=== PATIENT | male | born 1970 | race Caucasian/White ===

== ENCOUNTER 2020-09-21 20:32 | Emergency (ER) | payer OTHER ==
[~2020-09-21] VITALS: Ht 188 cm; Wt 110.2 kg
[~2020-09-21 20:32] MED LIST: ASCO500C PO; CETI10TA74 PO; VITA50004 PO
[2020-09-21 20:56] VITALS: BP 111/75
--- NOTE | 2020-09-21 21:12 | PHYS DOC ---
Past History Past Medical History: No Pertinent History Past Surgical History: Tonsillectomy, Other Additional Past Surgical Histo: left ACL repair 2015 Alcohol Use: Occasionally Adult General Chief Complaint Chief Complaint: RAPID HEART RATE HPI HPI Patient is a 49-year-old male who presents with rapid heart rate. States it started yesterday. States he is never had this before. Denies any medical problems or current medications. Denies any recent travel, trauma, fevers, chest pain, shortness of breath, abdominal pain, nausea, vomiting, dysuria, diarrhea, hematuria or blood in the stool. Denies any alcohol or drug use. Denies any dyspnea on exertion, orthopnea, PND or edema. Denies any history of VTE. States every time this year he does suffer from sinus infections and over the last week or 2 has had some nasal congestion and rhinorrhea with some itchiness in his eyes. States he is in the , and is never treated by the clinic for this and is told that it is usually allergic rhinitis. Denies any known ill contacts. Review of Systems Review of Systems Review of systems otherwise unremarkable except noted in HPI Allergies Allergies Allergies Coded Allergies Type Severity Reaction Last Updated Verified No Known Drug Allergies 03/20/20 No Physical Exam Physical Exam Constitutional: Well developed, well nourished, no acute distress, non-toxic appearance. [] HENT: Normocephalic, atraumatic, bilateral external ears normal, oropharynx moist, no oral exudates, nose normal. [] Eyes: conjunctiva normal, no discharge. [] Neck: Normal range of motion, no tenderness, supple, no stridor. [] Cardiovascular: Sinus tachycardia Lungs & Thorax: Bilateral breath sounds clear to auscultation [] Abdomen: soft, no tenderness, no masses, no pulsatile masses. [] Skin: Warm, dry, no erythema, no rash. [] Back: no CVA tenderness. [] Extremities: No tenderness, no cyanosis, no clubbing, ROM intact, no edema. [] Neurologic: Alert and oriented X 3, normal motor function, normal sensory function, no focal deficits noted. [] Psychologic: Affect normal, judgement normal, mood normal. [] Current Patient Data Vital Signs Vital Signs Date Time Temp Pulse Resp B/P (MAP) Pulse Ox O2 Delivery O2 Flow Rate FiO2 09/21/20 20:56 98.5 130 18 111/75 (87) 100 Room Air EKG EKG Rate of 125, QRS of 86, QTc of 426, no STEMI [] Radiology/Procedures Radiology/Procedures [] Heart Score C/O Chest Pain: No Risk Factors: Risk Factors: DM, Current or recent (<one month) smoker, HTN, HLP, family history of CAD, obesity. Risk Scores: Risk Factors: DM, Current or recent (<one month) smoker, HTN, HLP, family history of CAD, obesity. Course & Med Decision Making Course & Med Decision Making Patient is a 49-year-old male who presents with rapid heart rate Vital signs notable for sinus tachycardia. Physical exam noted above. EKG x2 noted above with sinus tachycardia no STEMI, but does have low limb lead v oltage. Troponin normal x2 Laboratory analysis not concerning. POC ultrasound with small pericardial effusion. Given patient's history of probable sinus infection, tachycardia, and EKG with low voltage on top of POC ultrasound showing a small pericardial effusion, patient likely suffering from pericarditis. On reassessment patient still asymptomatic with heart rate down around 100 after fluid resuscitation and Toradol. Patient otherwise healthy with no medical problems, and on no medications. Patient has no fever, and no white count. Patient has no headache, chest pain, shortness of breath, abdominal pain, nausea or vomiting. Given first dose of Toradol and colchicine in the ED. Discussed all findings with patient and recommended a course of NSAIDs and colchicine. Offered admission for evaluation and treatment as well as formal echocardiogram on Wednesday. Patient stated he otherwise felt well and would try the NSAIDs and colchicine route at home, as well as follow-up with his primary care. Advised to call primary care physician first thing Wednesday morning to update on pericarditis diagnoses and set up a follow-up appointment next week for repeat EKG and reevaluation. Gave strict return precautions to the emergency department. Patient grateful, verbalized understanding and agreed with plan of discharge. [] Dragon Disclaimer Dragon Disclaimer This electronic medical record was generated, in whole or in part, using a voice recognition dictation system. Departure Departure: Impression: Primary Impression: Pericarditis Disposition: 01 DC HOME SELF CARE/HOMELESS Condition: IMPROVED Referrals: PCP,NO (PCP) JESS GILBERT MD Patient Instructions: Pericardial Effusion, Pericarditis Additional Instructions: Please read all of the attached information carefully on your diagnosis. Please begin an ibuprofen regimen daily, taking 800 mg 3 times a day. You can also take Tylenol 1000 mg 3 times daily in between your ibuprofen dosing. Please take your colchicine as prescribed. It is very important that you follow-up with your primary care physician. Please call first thing Wednesday morning to update on your diagnosis of pericarditis and asked for a follow-up visit as soon as possible next week for reevaluation. As discussed, please come back to the emergency department immediately with any of the new or concerning symptoms that you and I discussed here in the emergency department. You are given a work note to return on Wednesday to allow rest and contact with your PCP. Scripts Ibuprofen (IBUPROFEN) 400 Mg Tablet 2 TAB PO TID PRN for pericarditis for 10 Days, #60 TAB Prov: GLENDY ISABEL MD 09/22/20 Colchicine (Colchicine) 0.6 Mg Tablet 1 TAB PO DAILY for pericarditis for 30 Days, #30 TAB 0 Refills Prov: GLENDY ISABEL MD 09/22/20 GLENDY ISABEL MD Sep 21, 2020 21:12
[2020-09-21 21:28] LABS: BASO % 0 % (0-3); EOS % 0 % (0-3); HEMATOCRIT 47.3 % (39.0-53.0); HEMOGLOBIN 16.4 g/dL (13.0-17.5); LYMPH # 0.7 x10^3/uL (1.0-4.8); LYMPH % 6 % (24-48); MEAN CORPUSCULAR HEMOGLOBIN 31 pg (25-35); MEAN CORPUSCULAR HGB CONC 35 g/dL (31-37); MEAN CORPUSCULAR VOLUME 91 fL (79-100); MONO # 0.4 x10^3/uL (0.0-1.1); MONO % 4 % (0-9); NEUT % 90 % (31-73); PLATELET COUNT 250 x10^3/uL (140-400); RED BLOOD COUNT 5.21 x10^6/uL (4.30-5.70); RED CELL DISTRIBUTION WIDTH 13.3 % (11.5-14.5); WHITE BLOOD COUNT 11.1 x10^3/uL (4.0-11.0)
[2020-09-21] MEDS ORDERED: IV RINGERS SOLUTION,LACTATED 1,000 ML IV ONE (21:30)
[2020-09-21 21:37] LABS: CALCIUM 9.5 mg/dL (8.5-10.1); CREATININE 1.3 mg/dL (0.7-1.3); GFR 58.2; POTASSIUM 4.1 mmol/L (3.5-5.1)
[2020-09-21 21:43] LABS: % LYMPHS 8 % (24-48); % MONOS 4 % (0-10); % SEGS 88 % (35-66); ALBUMIN 4.3 g/dL (3.4-5.0); ALBUMIN/GLOBULIN RATIO 1.4 (1.0-1.7); MAGNESIUM 1.6 mg/dL (1.8-2.4); PLT ESTIMATE ADEQUATE (ADEQUATE); TOTAL PROTEIN 7.4 g/dL (6.4-8.2)
--- NOTE | 2020-09-21 21:51 | RAD ---
Exam: Chest one view INDICATION: Rapid heart rate TECHNIQUE: Frontal view of the chest Comparisons: None FINDINGS: The cardiomediastinal silhouette and pulmonary vessels are within normal limits. The lung and pleural spaces are clear. IMPRESSION: No acute cardiopulmonary process. Electronically signed by: Nick Modi MD (09/21/2020 9:49 PM) HARISH
[2020-09-21] MEDS ORDERED: MAGNESIUM SULFATE 2GM 50 ML IV ONE (23:30)
[2020-09-21 23:47] LABS: BILIRUBIN,URINE NEG (NEG); CLARITY,URINE CLEAR; COLOR,URINE YELLOW; GLUCOSE,URINE NEG (NEG); UROBILINOGEN,URINE 0.2 mg/dL (0.2 mg/dL)
[2020-09-21 23:48] LABS: BACTERIA,URINE 0 /HPF (0-FEW); NITRITE,URINE NEG (NEG); RBC,URINE 0 /HPF (0-2); SPERM,URINE PRESENT /HPF; SQUAMOUS EPITHELIAL CELL,UR FEW /LPF; WBC,URINE OCC /HPF (0-4)
[2020-09-21 23:52] LABS: AMPHETAMINE/METHAMPHETAMINE NEG (NEG); BARBITURATES NEG (NEG); BENZODIAZEPINES NEG (NEG); CANNABINOIDS NEG (NEG); COCAINE NEG (NEG); METHADONE NEG (NEG); OPIATES NEG (NEG); PHENCYCLIDINE NEG (NEG)
[2020-09-22] MEDS ORDERED: KETOROLAC 15 MG/ML VIAL. IVP ONE (02:30)
[2020-09-22] MEDS ORDERED: IBUP400T18 PO (02:46)
[2020-09-22] MEDS ORDERED: COLC0.6T45 PO (02:46)
[2020-09-22] MEDS ORDERED: COLCHICINE 0.6 MG TABLET. PO ONE (03:00)
--- NOTE | 2020-09-22 03:20 | EKG ---
[facility] [address] [place] [address] Test Date: 2020-09-21 Test Time: 20:57:29 Pat Name: LEOBARDO SMITH Department: Room: Gender: M Primary Special Educator: JULES : 1970 Requested By: GLENDY ISABEL Order Number: [id number] Reading MD: Measurements Intervals [place] Rate: 125 P: 54 TN: 166 QRS: 67 QRSD: 86 T: 34 QT: 294 QTc: 426 Interpretive Statements SINUS TACHYCARDIA LOW LIMB LEAD VOLTAGE NO SPECIFIC ECG ABNORMALITIES RI6.02 No previous ECG available for comparison
[2020-09-23] MEDS ORDERED: AMOX1TAB61 PO (14:54)
== END 2020-09-22 02:59 | disposition home or self-care (01) ==
LOC: ER 20:32
DX: I31.9 Disease of pericardium, unspecified (principal)
CPT/HCPCS: 36415; 71045; 80053; 80307; 81001; 83735; 84484; 85007; 85025; 93005; 96361; 96365; 96366; 96375; 99285; J1885; J3475; J7120

== ENCOUNTER 2020-09-22 10:41 | Inpatient (IN) | payer OTHER ==
[~2020-09-22] VITALS: Ht 188 cm; Wt 110.7 kg
[~2020-09-22 10:41] MED LIST changes: +COLC0.6T45 PO; +IBUP400T18 PO
[2020-09-22 11:26] LABS: BASO % 1 % (0-3); EOS % 0 % (0-3); HEMATOCRIT 45.3 % (39.0-53.0); HEMOGLOBIN 15.6 g/dL (13.0-17.5); LYMPH # 0.6 x10^3/uL (1.0-4.8); LYMPH % 9 % (24-48); MEAN CORPUSCULAR HEMOGLOBIN 31 pg (25-35); MEAN CORPUSCULAR HGB CONC 34 g/dL (31-37); MEAN CORPUSCULAR VOLUME 90 fL (79-100); MONO # 0.3 x10^3/uL (0.0-1.1); MONO % 4 % (0-9); NEUT # 6.2 x10^3uL (1.8-7.7); NEUT % 87 % (31-73); PLATELET COUNT 229 x10^3/uL (140-400); RED BLOOD COUNT 5.03 x10^6/uL (4.30-5.70); RED CELL DISTRIBUTION WIDTH 13.1 % (11.5-14.5); WHITE BLOOD COUNT 7.2 x10^3/uL (4.0-11.0)
[2020-09-22 11:38] LABS: CALCIUM 8.7 mg/dL (8.5-10.1); CREATININE 1.3 mg/dL (0.7-1.3); GFR 58.2; POTASSIUM 3.7 mmol/L (3.5-5.1)
--- NOTE | 2020-09-22 11:42 | RAD ---
Exam performed: One view chest. Indication: Reason: chest pain, tachycardia / Spl. Instructions: / History: Date of Service: 09/22/2020 11:15 AM Comparison: 09/21/2020. Single AP upright portable view chest findings: Cardiomediastinal silhouette is within limits of normal. No acute infiltrates, effusion or pneumotho rax is detected. The bony structures are normal. Impression: No acute cardiopulmonary process is detected. Electronically signed by: Scarlett Ford MD (09/22/2020 11:39 AM) [facility]
[2020-09-22 11:50] LABS: ALBUMIN 3.8 g/dL (3.4-5.0); ALBUMIN/GLOBULIN RATIO 1.2 (1.0-1.7); TOTAL BILIRUBIN 1.1 mg/dL (0.2-1.0); TOTAL PROTEIN 7.1 g/dL (6.4-8.2)
[2020-09-22] MEDS ORDERED: IBUPROFEN 800 MG TABLET. PO ONE (12:00)
[2020-09-22] MEDS ORDERED: AMPICILLIN/SULBACTAM 3 GM in IV NORMAL SALINE 100ML 100 ML IV ONE (12:30)
--- NOTE | 2020-09-22 12:33 | EKG ---
[address] [address] Test Date: 2020-09-22 Test Time: 11:13:58 Pat Name: LEOBARDO SMITH Department: Room: Gender: M Punch Press Feeder: RANJAN : 1970 Requested By: ADDY ZAMBRANO Order Number: [id number] Reading MD: Manny Tadeo MD Measurements Intervals [place] Rate: 103 P: 78 LA: 178 QRS: 73 QRSD: 94 T: 48 QT: 330 QTc: 434 Interpretive Statements SINUS TACHYCARDIA Electronically Signed On 09-23-2020 12:44:43 CDT by Manny Tadeo MD
[2020-09-22] MEDS ORDERED: IV NORMAL SALINE 1,000ML 1,000 ML IV ONE (12:45)
--- NOTE | 2020-09-22 13:32 | PHYS DOC ---
Past History Past Medical History: No Pertinent History Past Surgical History: Tonsillectomy, Other Additional Past Surgical Histo: left ACL repair 2015 Alcohol Use: Occasionally Adult General Chief Complaint Chief Complaint: RAPID HEART RATE HPI HPI Patient is a 49-year-old male representing for chest pain. Was seen here in the preceding 12 hours by overnight physician, had comprehensive work-up performed that was concerning for pericarditis given recent URI-like symptoms and suspect dental infection. Patient was subsequently discharged home after improving from initial ER care with appropriate NSAIDs and colchicine. Patient reports taking these but still reports being symptomatic with occasional palpitations, generalized weakness and intermittent chest pain prompting him to come back for repeat evaluation. Since last seen, patient denies any fever, vision changes, ripping or tearing chest pain, hemoptysis, shortness of breath, abdominal pain, neurologic symptoms Review of Systems Review of Systems Fourteen body systems of review of systems have been reviewed. See HPI for pertinent positives and negative responses, other barber all other systems are negative, non-pertinent or non-contributory Current Medications Current Medications Current Medications Medications (Trade) Dose Ordered Sig/Elroy Start Time Stop Time Status Last Admin Dose Admin Ampicillin Sodium/ Sulbactam Sodium 3 gm/Sodium Chloride 100 ml @ 200 mls/hr 1X ONCE 09/22/20 12:30 09/22/20 12:59 DC 09/22/20 12:50 200 MLS/HR Ibuprofen (Motrin) 800 mg 1X ONCE 09/22/20 12:00 09/22/20 12:08 DC Sodium Chloride 1,000 ml @ 1,000 mls/hr 1X ONCE 09/22/20 12:45 09/22/20 13:44 09/22/20 12:50 1,000 MLS/HR Allergies Allergies Allergies Coded Allergies Type Severity Reaction Last Updated Verified No Known Drug Allergies 03/20/20 No Physical Exam Physical Exam Constitutional: Well developed, well nourished, no acute distress, appears uncomfortable HENT: Normocephalic, atraumatic, bilateral external ears normal, oropharynx dry with concern for infected dental carry tooth #12, no oral exudates, nose normal. Eyes: PERRLA, EOMI, conjunctiva normal, no discharge. Neck: Normal range of motion, no tenderness, supple, no stridor. Cardiovascular: Heart rate tachycardic, sinus rhythm, no obvious murmurs rubs or gallops Lungs & Thorax: Bilateral breath sounds clear to auscultation, no increased work of breathing or respiratory distress noted Abdomen: Bowel sounds normal, soft, no tenderness, no masses, no pulsatile masses. Nonsurgical abdomen, no peritoneal signs Skin: Warm, dry, no erythema, no rash. Back: No tenderness, no CVA tenderness. Extremities: No tenderness, no cyanosis, no clubbing, ROM intact, no edema. Neurologic: Alert and oriented X 3, grossly normal motor & sensory function, no focal deficits noted. Psychologic: Affect normal, judgement normal, depressed mood Current Patient Data Vital Signs Vital Signs Date Time Temp Pulse Resp B/P (MAP) Pulse Ox O2 Delivery O2 Flow Rate FiO2 09/22/20 12:30 90 16 113/69 (84) 99 Room Air 09/22/20 10:49 97.9 Lab Results Laboratory Tests Test 09/22/20 10:52 09/22/20 11:50 White Blood Count 7.2 x10^3/uL (4.0-11.0) Red Blood Count 5.03 x10^6/uL (4.30-5.70) Hemoglobin 15.6 g/dL (13.0-17.5) Hematocrit 45.3 % (39.0-53.0) Mean Corpuscular Volume 90 fL (79-100) Mean Corpuscular Hemoglobin 31 pg (25-35) Mean Corpuscular Hemoglobin Concent 34 g/dL (31-37) Red Cell Distribution Width 13.1 % (11.5-14.5) Platelet Count 229 x10^3/uL (140-400) Neutrophils (%) (Auto) 87 % (31-73) H Lymphocytes (%) (Auto) 9 % (24-48) L Monocytes (%) (Auto) 4 % (0-9) Eosinophils (%) (Auto) 0 % (0-3) Basophils (%) (Auto) 1 % (0-3) Neutrophils # (Auto) 6.2 x10^3uL (1.8-7.7) Lymphocytes # (Auto) 0.6 x10^3/uL (1.0-4.8) L Monocytes # (Auto) 0.3 x10^3/uL (0.0-1.1) Eosinophils # (Auto) 0.0 x10^3/uL (0.0-0.7) Basophils # (Auto) 0.0 x10^3/uL (0.0-0.2) Sodium Level 134 mmol/L (136-145) L Potassium Level 3.7 mmol/L (3.5-5.1) Chloride Level 100 mmol/L (98-107) Carbon Dioxide Level 23 mmol/L (21-32) Anion Gap 11 (6-14) Blood Urea Nitrogen 12 mg/dL (8-26) Creatinine 1.3 mg/dL (0.7-1.3) Estimated GFR (Cockcroft-Gault) 58.2 BUN/Creatinine Ratio 9 (6-20) Glucose Level 122 mg/dL (70-99) H Calcium Level 8.7 mg/dL (8.5-10.1) Total Bilirubin 1.1 mg/dL (0.2-1.0) H Aspartate Amino Transferase (AST) 28 U/L (15-37) Alanine Aminotransferase (ALT) 35 U/L (16-63) Alkaline Phosphatase 53 U/L (46-116) Troponin I Quantitative < 0.017 ng/mL (0-0.055) ZE-Phb-W-Type Natriuretic Peptide 149 pg/mL (0-124) H Total Protein 7.1 g/dL (6.4-8.2) Albumin 3.8 g/dL (3.4-5.0) Albumin/Globulin Ratio 1.2 (1.0-1.7) Lactic Acid Level 0.8 mmol/L (0.4-2.0) EKG EKG EKG ordered and interpreted by myself at 1120 hrs. as sinus rhythm at 103 bpm, unremarkable intervals, no axis deviation, no significant ST abnormalities noted, no STEMI This EKG was compared to prior EKG obtained yesterday evening at 2057 hrs., there is no gross change Radiology/Procedures Radiology/Procedures Exam performed: One view chest. Indication: Reason: chest pain, tachycardia / Spl. Instructions: / History: Date of Service: 09/22/2020 11:15 AM Comparison: 09/21/2020. Single AP upright portable view chest findings: Cardiomediastinal silhouette is within limits of normal. No acute infiltrates, effusion or pneumothorax is detected. The bony structures are normal. Impression: No acute cardiopulmonary process is detected. Electronically signed by: Scarlett Ford MD (09/22/2020 11:39 AM) [facility] Heart Score C/O Chest Pain: Yes HEART Score for Chest Pain: HEART Score for Chest Pain Response (Comments) Value History Moderately Suspicious 1 ECG Nonspecific Repolarizatio 1 Age >45 - < 65 1 Risk Factors No Risk Factors 0 Troponin < Normal Limit 0 Total 3 Risk Factors: Risk Factors: DM, Current or recent (<one month) smoker, HTN, HLP, family history of CAD, obesity. Risk Scores: Risk Factors: DM, Current or recent (<one month) smoker, HTN, HLP, family history of CAD, obesity. Course & Med Decision Making Course & Med Decision Making Patient initially tachycardic but hemodynamically stable. HPI and physical examination concerning for recent diagnosis of pericarditis with pericardial effusion noted on POC ultrasound Comprehensive ER work-up performed and grossly unremarkable for any emergent and/or surgical issues Responded to IV fluid resuscitation while in ER. I reviewed ER work-up again with patient at length with good understanding. Patient still symptomatic, does not feel safe for discharge back home. Joint decision made to start treatment on suspect URI/dental infection and admit for continued care and high risk patient I contacted on-call hospitalist and reviewed case, he agreed need for admission and accepted patient under his care for continued inpatient medical management and potential cardiology consultation I updated patient on proposed plan of care for admission and continued management with IV fluids, NSAIDs, colchicine and antibiotics for oral pharyngeal infection, he was amenable All questions and concerns addressed prior to ER transport to [facility] for admission Critical Care Time This patient required critical care. Due to the fact that the patient required a significant amount of one on one physician - patient contact time, ordering and review of studies, arranging urgent treatment with development of a management plan, evaluation of patients response to treatment with frequent reassessments, and discussions with other providers this patient required 50 minutes of critical care time. Critical care time was indicated due to the inherent instability and/or potential for instability in this patient. The critical care time that is allocated to this patient is above and beyond any time spent on any other billable procedures performed on this patient. Dragon Disclaimer Dragon Disclaimer This electronic medical record was generated, in whole or in part, using a voice recognition dictation system. Departure Departure: Impression: Primary Impression: Pericarditis Additional Impression: Dental infection Disposition: 09 ADMITTED INPT THIS HOSP Admitting Physician: Xander Peterson Condition: STABLE Referrals: PCP,NO (PCP) Problem Qualifiers ADDY ZAMBRANO DO Sep 22, 2020 13:32
[2020-09-22] MEDS ORDERED: ACETAMINOPHEN 325 MG TABLET PO PRN (13:45)
--- NOTE | 2020-09-22 14:00 | NUR ---
ADMISSION NOTE Pt arrived to unit at 1400. Admission complete. Pt started on maintenance fluids, abx and anti inflammatory per Dr. Peterson. Pt resting comfortably and no complains of pain. Tele placed on pt. Will continue to monitor. KINDRA RN
[2020-09-22 14:38] VITALS: BP 118/81
[2020-09-22 15:01] VITALS: BP 118/81
[2020-09-22] MEDS ORDERED: IV NORMAL SALINE 1,000ML 1,000 ML IV SCH (16:15)
[2020-09-22] MEDS: AMPICILLIN/SULBACTAM 3 GM in IV NORMAL SALINE 100ML 100 ML IV SCH ×2 (17:51→23:33)
[2020-09-22] MEDS: IBUPROFEN 800 MG TABLET. PO PRN (17:57)
--- NOTE | 2020-09-22 19:04 | HP ---
ADMIT DATE: 09/22/2020 HISTORY OF PRESENT ILLNESS: The patient is a 49-year-old male patient who was seen initially at the Emergency Room yesterday with a complaint of rapid heart rate. He stated it started the day before and he has never had this before. He denied any medical problems or current medication. Denied any recent travel or trauma, fever, chest pain, shortness of breath, abdominal pain, nausea, vomiting, dysuria, diarrhea, or hematuria. Denied any alcohol or drug use. Denied any dyspnea on exertion, orthopnea, paroxysmal nocturnal dyspnea. He denied any history of venous thromboembolism. States every time this year, he does suffer from sinus infection, and over the last week or 2, had had some nasal congestion and rhinorrhea with some itchiness in his eyes. States that he is ambulatory and is never treated by the clinic for this and he is told that it is usually allergic rhinitis. He apparently was extensively investigated. He had had an EKG, which showed he was in sinus tachycardia with a heart rate of 125 beats per minute. He has also extensive investigation including lab work as well as imaging studies. His white cell count was slightly elevated at 11.1. His chemistry was mostly unremarkable. Urinalysis was also unremarkable. Toxic screen was essentially negative. He has had a chest x-ray, which showed that the cardiomediastinal silhouette and pulmonary vessels are within normal limits. The lungs and pleural spaces are clear, and apparently, he was discharged home, as ultrasound showed small pericardial effusion, and the patient was diagnosed with pericarditis, and given that he has sinus infection and tachycardia, EKG with low voltage on top of ultrasound showing small pericardial effusion. The patient was discharged home with clear instruction to come back if the patient continued to have marked tachycardia. He was advised to call his primary care physician on Wednesday morning. However, the patient was unable to sleep and continued to have persistent tachycardia, and therefore, the patient was admitted. He was started on Unasyn and was admitted to continue with the ibuprofen, IV antibiotic and to consult the Cardiology team. PAST MEDICAL HISTORY: Unremarkable. PAST SURGICAL HISTORY: Significant for ACL repair in left knee 6 years ago. He also had tonsillectomy and adenoidectomy. ALLERGIES: He has no known drug allergies. MEDICATIONS: He is on Zyrtec 10 mg once a day for allergy. FAMILY HISTORY: He has one brother older and healthy. Father still alive at age of 80 and mother is still alive at age 76 and both have no medical problems. SOCIAL HISTORY: He is , has 2 sons. He never smoked. Drinks alcohol occasionally. Does not use any drugs. He is an senior data quality analyst ____, as he is a retired . PHYSICAL EXAMINATION: GENERAL: On examining him today, he looked well and was clearly in no apparent respiratory distress. No pallor, jaundice, cyanosis or thyromegaly. No jugular venous distention or limb edema. VITAL SIGNS: His heart rate was 114, blood pressure was 120/82, temperature was 97.9, respiratory rate was 16, and oxygen saturation was 99%. HEAD, EYES, EARS, NOSE AND THROAT: Showed normocephalic, atraumatic. NECK: Supple. HEART: Showed normal first and second heart sounds. No gallop or murmur. CHEST: Shows central trachea, equal bilateral chest expansion, air entry, vesicular sounds. I could not appreciate any crepitation or rhonchi. ABDOMEN: Distended, soft, nontender. NEUROLOGIC: Grossly intact. ASSESSMENT AND PLAN: In summary, this is a 49-year-old male patient who yet again admitted with another episode of tachycardia as well as dental infection. He was given IV fluid and IV antibiotic. PLAN: My plan is to continue with IV fluid, nonsteroidal inflammatory as well as antibiotics and consult the generating station mechanic, and I will also arrange for him to have a CT scan of the maxillofacial area, and once the generating station mechanic evaluates him ____, he can be discharged home to continue treatment with oral Augmentin. MÓNICA YOUNG MD DR: HERIBERTO/karen JOB#: [id number] / [id number]
[2020-09-22 19:45] VITALS: BP 136/83
--- NOTE | 2020-09-23 02:13 | RAD ---
CT maxillofacial without contrast History: Persistent pain on left maxillary sinus and teeth Axial helical images of the face were obtained without contrast. Axial, sagittal and coronal reconstr uction was performed. The nasal septum is moderately deviated to the right. The ostiomeatal complexes are narrow but patent . There is moderate mucoperiosteal thickening inferiorly in the left maxillary sinus. The visualized osseous structures appear intact. The orbits appear normal. Impression: Moderate mucoperiosteal thickening inferiorly in the left maxillary sinus. End impression PQRS Compliance Statement: One or more of the following individualized dose reduction techniques were utilized for this examinat ion: 1. Automated exposure control 2. Adjustment of the mA and/or kV according to patient size 3. Use of iterative reconstruction technique Electronically signed by: Johnnie Schofield III, MD (09/23/2020 2:11 AM) [facility]
[2020-09-23] MEDS: IBUPROFEN 800 MG TABLET. PO PRN (03:23)
[2020-09-23] MEDS: AMPICILLIN/SULBACTAM 3 GM in IV NORMAL SALINE 100ML 100 ML IV SCH ×2 (05:40→12:54)
[2020-09-23 06:21] VITALS: BP 122/81
[2020-09-23 06:34] LABS: HEMATOCRIT 42.7 % (39.0-53.0); HEMOGLOBIN 14.7 g/dL (13.0-17.5); RED BLOOD COUNT 4.67 x10^6/uL (4.30-5.70); RED CELL DISTRIBUTION WIDTH 13.3 % (11.5-14.5); WHITE BLOOD COUNT 3.9 x10^3/uL (4.0-11.0)
[2020-09-23 06:51] LABS: ALBUMIN 3.1 g/dL (3.4-5.0); CALCIUM 7.9 mg/dL (8.5-10.1); CREATININE 1.2 mg/dL (0.7-1.3); GFR 63.8; POTASSIUM 3.7 mmol/L (3.5-5.1); TOTAL BILIRUBIN 0.7 mg/dL (0.2-1.0); TOTAL PROTEIN 6.1 g/dL (6.4-8.2)
[2020-09-23 12:00] VITALS: BP 138/89
[2020-09-23] MEDS ORDERED: AMOX1TAB61 PO (14:54)
--- NOTE | 2020-09-23 17:25 | PDOC ---
PROVIDER NOTE PROVIDER NOTE PROVIDER NOTE Cardiology consultation note: Reason for consultation: Tachycardia History of present illness 49-year-old man who presented to the hospital in the setting of tooth pain and sinusitis type symptoms. He reports that he has had allergies for several years in the past and most recently at 5:00 the evening prior to admission had an episode where he had pain consistent with maxillary sinusitis and this also affected his upper palate and teeth. When he sought medical attention in the emergency department he did not have any significant pathology and ultimately also had a limited [id number] ultrasound performed on his heart which revealed a small pericardial effusion. The working diagnosis was that of pericarditis although he did not have any specific symptoms to suggest pericarditis. The [id number] ultrasound images are not available for review and therefore it is difficult to determine if he truly had a pericardial eff usion. Nonetheless, he was discharged with instructions to come back if there was any significant worsening. Due to worsening tachycardia type symptoms he presented back to the ER. He was admitted overnight and monitored. He did not have any significant pathology on telemetry. This morning he denies any specific chest pain, dyspnea, orthopnea or PND. He does not have any lilia carditic or pleuritic type chest pain. At baseline he is able to function quite well and does activity around the house without any significant limitations. He denies any prior cardiovascular history. A CT scan of the sinuses did reveal sinusitis of his left side consistent with the location of his symptoms. An EKG has been unremarkable. Past medical history: Seasonal allergies otherwise no significant cardiovascular pathology noted Surgical history is unremarkable Allergies no known drug allergies Review of systems is negative for 10 or 14 systems reviewed unless otherwise mentioned above in HPI The patient appeared well nourished and normally developed. Head exam is unremarkable. No scleral icterus or corneal arcus noted. Neck is without jugular venous distension, thyromegaly, or carotid bruits. Carotid upstrokes are brisk bilaterally. Lungs are clear to auscultation and percussion. Cardiac exam reveals the PMI to be normally sized and situated. Rhythm is regular. First and second heart sounds normal. No murmurs, rubs or gallops. Abdominal exam reveals normal bowel sounds, no masses, no organomegaly and no aortic enlargement. Extremities are nonedematous and both femoral and pedal pulses are normal. Msk: No traumua Neuro: No focal deficits Diagnostic studies/labs EKG, cardiac enzymes and chest x-ray are unremarkable Again [id number]-[id number] ultrasound performed in the ER is unavailable for review. CT of the head consistent with sinusitis. Impression: 1. Sinus tachycardia in the setting of sinusitis and pain without any obvious evidence of pericarditis. Recommendations: 1. At this present time I feel that the patient is a low risk individual with respect to cardiovascular pathology. He has no symptoms consistent with angina, he actually does not have any symptoms is consistent with pericarditis either. We will plan for an outpatient full echocardiogram study. For now continue treatment of his sinusitis. Supportive care. We will consider outpatient event monitoring should he have any recurrent symptoms after the treatment of his sinusitis. Thank you for this consultation. Discussed with the patient who is agreeable to the current plan. Discussed with Dr. Peterson Justification of Admission: Justification of Admission: Justification of Admission Dx: N/A MARIELLE SHERIFF MD Sep 23, 2020 17:25
--- NOTE | 2020-09-23 19:00 | DS ---
DATE OF DISCHARGE: 09/23/2020 HOSPITAL COURSE: The patient is a 49-year-old male patient who was admitted with a complaint of rapid heart rate started. He denied any chest pain, shortness of breath, cough, phlegm or hemoptysis. Denied any alcohol or drug use. Denied any orthopnea or paroxysmal nocturnal dyspnea. Denied any history of venous thromboembolism. He states that this time of the year, he does suffer from sinus infection and over the last week or two, he has had some nasal congestion and rhinorrhea with some itchiness in his eyes. He says he is ambulatory and never treated by the clinic for this and he apparently was extensively investigated, has had an EKG, which showed that he was in sinus tachycardia with a heart rate of 125 beats per minute. He has also extensive investigation including lab work as well as imaging studies. His white cell count was slightly elevated at 11.1. Chemistry was mostly unremarkable. Urinalysis was also unremarkable. Toxic screen was essentially negative. He has had a chest x-ray, which showed that he had cardiomediastinal silhouette and pulmonary vessels are within normal limits. The lungs and pleural spaces are clear. Apparently, he was discharged home as ultrasound showed small pericardial effusion and the patient was diagnosed with endocarditis given that he has sinus infection and tachycardia. EKG with low voltage on double ultrasound showing small pericardial effusion. The patient was discharged home with a clear instruction to come back if the patient continued to have marked tachycardia. He was advised to call his primary care physician; however, the patient was unable to sleep. Continued to have persistent tachycardia and therefore, the patient was admitted. He was started on Unasyn and was continued on ibuprofen and we did consult the Cardiology team; however, the patient has denied any chest pain. His EKG did not show any ST segment elevation consistent with pericarditis and basically the patient remained hemodynamically stable, afebrile. His white cell count was normal and his heart rate remained stable and he was seen by the dump motor operator and initially, the plan was for him to have an echocardiogram; however, he has to have authorization by [facility] and therefore, the patient was discharged home to follow with his primary care physician. His CT scan of the paranasal sinuses showed that he has left sided maxillary sinusitis and a decision was made to discharge him home to continue with Augmentin at 875 mg twice a day for 7 more days and to make an appointment to be seen by an ENT surgeon for deviated nasal septum. When I saw him this afternoon, he looked well and was clearly in no apparent respiratory distress. No pallor, jaundice, cyanosis or thyromegaly. No jugular venous distension. No lower limb edema. PHYSICAL EXAMINATION: VITAL SIGNS: His heart rate was 87, blood pressure was 138/89, temperature was 97.8, respiratory rate was 16 and his oxygen saturation was 99% on room air. HEAD, EYES, EARS, NOSE AND THROAT: Showed normocephalic, atraumatic. NECK: Supple. HEART: Showed normal first and second heart sounds with no gallop, rub or murmur. CHEST: Clear to auscultation. No crepitation or rhonchi. ABDOMEN: Distended, soft, nontender. NEUROLOGIC: He was awake, alert, responding appropriately. All cranial nerves intact. EXTREMITIES: He moves extremities without difficulty, ambulates without assistance or assistive devices. LABORATORY DATA: This morning showed white cell count of 3900, hemoglobin 14, hematocrit 42, MCV 91, and platelet count of 172,000. His D-dimer was slightly elevated at 3.56. His chemistry showed a serum sodium 141, potassium 3.7, chloride 108, bicarbonate 23, anion gap of 10, BUN 101.2, estimated GFR was 63 mL per minute. His glucose was 105, calcium was 7.9. Total bilirubin, ALT and alkaline phosphatase is normal. AST is slightly elevated. His C-reactive protein was slightly elevated at 89, total protein was 6.1, albumin 3.1. His TSH was normal at 1.551 DISCHARGE MEDICATIONS: The patient was discharged home to continue on Augmentin 875 mg twice a day for 7 days with food. FINAL DISCHARGE DIAGNOSES: Sinus tachycardia, likely active left side maxillary sinusitis. There is no clinical or electrographic evidence of pericarditis as the patient has been chest pain free and EKG showed no evidence of ST segment elevation characteristic of pericarditis. The patient was found also to have deviated nasal septum. The patient was advised to follow with his primary care physician and also with an ENT surgeon for deviated nasal septum. MÓNICA YOUNG MD DR: HERIBERTO/karen JOB#: [id number] / [id number]
[2020-09-23] MEDS ORDERED: LACTOBACILLUS RHAMNOSUS GG 1 CAPSULE. PO SCH (21:00)
== END 2020-09-23 15:02 | disposition home or self-care (01) | DRG 158 ==
LOC: ER 10:41 → 1 SOUTH 13:34
PROVIDERS: ADMIT Internal Medicine; ATTEND Internal Medicine
DX: K04.6 Periapical abscess with sinus (principal); I38 Endocarditis, valve unspecified; J30.9 Allergic rhinitis, unspecified; J34.2 Deviated nasal septum; J32.0 Chronic maxillary sinusitis; J30.2 Other seasonal allergic rhinitis; Z79.899 Other long term (current) drug therapy; Z90.49 Acquired absence of other specified parts of digestive tract
CPT/HCPCS: 36415; 70486; 71045; 80053; 83605; 83880; 84443; 84484; 85025; 85027; 85379; 86140; 87040; 93005; J0295; 99285-25; J7030

== ENCOUNTER 2021-05-20 20:22 | Inpatient (IN) | payer OTHER ==
[~2021-05-20] VITALS: Ht 188 cm; Wt 106.6 kg
[~2021-05-20 20:22] MED LIST changes: +AMOX1TAB61 PO
--- NOTE | 2021-05-20 20:26 | PHYS DOC ---
Past History Past Medical History: No Pertinent History (ROSA MCNEAL MD) Past Surgical History: Tonsillectomy, Other Additional Past Surgical Histo: left ACL repair 2015 (ROSA MCNEAL MD) Alcohol Use: Occasionally (ROSA MCNEAL MD) General Adult HPI: HPI: Patient is a 50 year old male who presents with above hx and compliants (ROSA MCNEAL MD) Review of Systems: Review of Systems: Constitutional: Denies fever or chills Eyes: Denies change in visual acuity HENT: Denies nasal congestion or sore throat Respiratory: Denies cough or shortness of breath Cardiovascular: Denies chest pain or edema GI: Denies abdominal pain, nausea, vomiting, bloody stools or diarrhea : Denies dysuria Musculoskeletal: Denies back pain or joint pain Integument: Denies rash Neurologic: Denies headache, focal weakness or sensory changes Endocrine: Denies polyuria or polydipsia Lymphatic: Denies swollen glands Psychiatric: Denies depression or anxiety (ROSA MCNEAL MD) Allergies: Allergies: Allergies Coded Allergies Type Severity Reaction Last Updated Verified No Known Drug Allergies 03/20/20 No (ROSA MCNEAL MD) Physical Exam: PE: Constitutional: Well developed, well nourished, no acute distress, non-toxic appearance. [] HENT: Normocephalic, atraumatic, bilateral external ears normal, oropharynx moist, no oral exudates, nose normal. [] Eyes: PERRLA, EOMI, conjunctiva normal, no discharge. [] Neck: Normal range of motion, no tenderness, supple, no stridor. [] Cardiovascular:Heart rate regular rhythm, no murmur [] Lungs & Thorax: Bilateral breath sounds clear to auscultation [] Abdomen: Bowel sounds normal, soft, no tenderness, no masses, no pulsatile masses. [] Skin: Warm, dry, no erythema, no rash. [] Back: No tenderness, no CVA tenderness. [] Extremities: No tenderness, no cyanosis, no clubbing, ROM intact, no edema. [] Neurologic: Alert and oriented X 3, normal motor function, normal sensory function, no focal deficits noted. [] Psychologic: Affect normal, judgement normal, mood normal. [] (ROSA MCNEAL MD) EKG: EKG: [] (ROSA MCNEAL MD) Radiology/Procedures: Radiology/Procedures: [] (ROSA MCNEAL MD) Heart Score: Risk Factors: Risk Factors: DM, Current or recent (<one month) smoker, HTN, HLP, family history of CAD, obesity. Risk Scores: Score 0 - 3: 2.5% MACE over next 6 weeks - Discharge Home Score 4 - 6: 20.3% MACE over next 6 weeks - Admit for Clinical Observation Score 7 - 10: 72.7% MACE over next 6 weeks - Early Invasive Strategies (ROSA MCNEAL MD) Course & Med Decision Making: Course & Med Decision Making Pertinent Labs and Imaging studies reviewed. (See chart for details) [] (ROSA MCNEAL MD) Dragon Disclaimer: Dragon Disclaimer: This electronic medical record was generated, in whole or in part, using a voice recognition dictation system. (ROSA MCNEAL MD) Departure Departure: Referrals: PCP,NO (PCP) ROSA MCNEAL MD May 20, 2021 20:26 IAN MUNIZ May 20, 2021 20:46
[2021-05-20] MEDS ORDERED: IV RINGERS SOLUTION,LACTATED 1,000 ML IV ONE (20:45)
--- NOTE | 2021-05-20 20:53 | PHYS DOC ---
Past History Past Medical History: No Pertinent History (IAN MUNIZ) Past Surgical History: Tonsillectomy, Other Additional Past Surgical Histo: left ACL repair 2015 (IAN MUNIZ) Alcohol Use: Occasionally (IAN MUNIZ) General Adult EDM: Chief Complaint: SHORTNESS OF BREATH HPI: HPI: Patient is a 50 year old male without significant past medical history who presents with worsening shortness of breath with known COVID-19 diagnosis. Patient reports that approximately 9 days ago, he began to have severe muscle aches and general fatigue. By (5 days ago), he states that he started to feel better. Two days ago his condition worsened once more, and he was diagnosed with COVID-19. He reports associated intermittent nausea, but denies abdominal pain, vomiting, diarrhea, constipation. Since his symptoms have started, he denies cough, congestion, sputum production. Per EMS, patient was 92% oxygen saturation on 6L nasal cannula en route. Patient did not receive COVID-19 vaccination and has not received his annual flu shot for several years. (IAN MUNIZ) Review of Systems: Review of Systems: Constitutional: See HPI HENT: See HPI Respiratory: See HPI Cardiovascular: Denies chest pain or edema GI: See HPI : Denies dysuria or hematuria Musculoskeletal: Denies back pain or joint pain Integument: Denies rash or other skin lesions Neurologic: Denies headache, focal weakness or sensory changes (IAN MUNIZ) Current Medications: Current Meds: Current Medications Medications (Trade) Dose Ordered Sig/Elroy Start Time Stop Time Status Last Admin Dose Admin Lactated Ringer's 1,000 ml @ 1,000 mls/hr 1X ONCE 05/20/21 20:45 05/20/21 21:44 (IAN MUNIZ) Allergies: Allergies: Allergies Coded Allergies Type Severity Reaction Last Updated Verified No Known Drug Allergies 03/20/20 No (IAN MUNIZ) Physical Exam: PE: Constitutional: Well developed, well nourished, no acute distress, non-toxic appearance. HENT: Normocephalic, atraumatic, bilateral external ears normal, oropharynx moist, no oral exudates, nose normal. Eyes: PERRLA, EOMI, conjunctiva normal, no discharge. Neck: Normal range of motion, no tenderness, supple, no stridor. Cardiovascular: Heart rate regular rhythm, no murmur. Lungs & Thorax: Breath sounds diminished diffusely. No wheezes, rales or rhonchi. Abdomen: Bowel sounds normal, soft, no tenderness, no masses, no pulsatile masses. Skin: Warm, dry, no erythema, no rash. Extremities: No tenderness, no cyanosis, no clubbing, ROM intact, no edema. Neurologic: Alert and oriented x4, motor function grossly intact, sensory function grossly intact, no focal deficits noted. (IAN MUNIZ) Current Patient Data: Labs: Laboratory Tests Test 05/20/21 20:46 White Blood Count 10.7 x10^3/uL (4.0-11.0) Red Blood Count 4.53 x10^6/uL (4.30-5.70) Hemoglobin 14.1 g/dL (13.0-17.5) Hematocrit 39.9 % (39.0-53.0) Mean Corpuscular Volume 88 fL (79-100) Mean Corpuscular Hemoglobin 31 pg (25-35) Mean Corpuscular Hemoglobin Concent 35 g/dL (31-37) Red Cell Distribution Width 12.7 % (11.5-14.5) Platelet Count 204 x10^3/uL (140-400) Neutrophils (%) (Auto) 95 % (31-73) Lymphocytes (%) (Auto) 2 % (24-48) Monocytes (%) (Auto) 3 % (0-9) Eosinophils (%) (Auto) 0 % (0-3) Basophils (%) (Auto) 0 % (0-3) Neutrophils # (Auto) 10.1 x10^3uL (1.8-7.7) Lymphocytes # (Auto) 0.2 x10^3/uL (1.0-4.8) Monocytes # (Auto) 0.3 x10^3/uL (0.0-1.1) Eosinophils # (Auto) 0.0 x10^3/uL (0.0-0.7) Basophils # (Auto) 0.0 x10^3/uL (0.0-0.2) Sodium Level 125 mmol/L (136-145) Potassium Level 3.3 mmol/L (3.5-5.1) Chloride Level 89 mmol/L (98-107) Carbon Dioxide Level 22 mmol/L (21-32) Anion Gap 14 (6-14) Blood Urea Nitrogen 15 mg/dL (8-26) Creatinine 1.2 mg/dL (0.7-1.3) Estimated GFR (Cockcroft-Gault) 63.6 BUN/Creatinine Ratio 13 (6-20) Glucose Level 147 mg/dL (70-99) Lactic Acid Level 1.7 mmol/L (0.4-2.0) Calcium Level 7.8 mg/dL (8.5-10.1) Total Bilirubin 0.8 mg/dL (0.2-1.0) Aspartate Amino Transf (AST/SGOT) 75 U/L (15-37) Alanine Aminotransferase (ALT/SGPT) 47 U/L (16-63) Alkaline Phosphatase 53 U/L (46-116) Total Protein 6.7 g/dL (6.4-8.2) Albumin 3.0 g/dL (3.4-5.0) Albumin/Globulin Ratio 0.8 (1.0-1.7) Vital Signs: VS - Last 72 Hours, by Label Date Time Temp Pulse Resp B/P (MAP) Pulse Ox O2 Delivery O2 Flow Rate FiO2 05/20/21 23:00 80 95 NonRebreather Mask 12.0 05/20/21 22:23 74 16 122/66 (84) 97 NonRebreather Mask 12.0 05/20/21 21:54 86 18 121/46 (71) 95 8.0 05/20/21 21:23 83 20 131/69 (89) 95 8.0 05/20/21 20:59 101.3 110 20 124/67 (86) 95 Nasal Cannula 6.0 05/20/21 20:53 83 18 132/74 (93) 95 Nasal Cannula 8.0 (IAN MUNIZ) EKG: EKG: EKG Interpreted by Dr. Hammer at 2034: Regular rate and rhythm 87 bpm with no ectopic beats. No concerning ST-T wave changes. Regular QR interval. (IAN MUNIZ) Radiology/Procedures: Radiology/Procedures: PROCEDURE: PORTABLE CHEST 1V Study: XR CHEST 1V Indication: Shortness of breath. Covid positive. Comparison: 09/22/2020 Findings: Extensive bilateral airspace opacities. No pleural effusion or pneumothorax. Asymmetric elevation of the right hemidiaphragm. The cardiomediastinal silhouette is within normal limits for size. Impression: Relatively diffuse bilateral airspace opacities most likely on account of an atypical/viral pneumonia given history. Electronically signed by: JUAN J RILEY MD (05/20/2021 10:43 PM) [facility] [place] (IAN MUNIZ) Radiology/Procedures: [address] [address] IMAGING REPORT Signed PATIENT: LEOBARDO SMITH ACCOUNT: [id number] : 1970 LOCATION: ER AGE: 50 SEX: M EXAM STATUS: REG ER ORD. PHYSICIAN: IAN MUNIZ REASON: SOB, COVID+ PROCEDURE: PORTABLE CHEST 1V Study: XR CHEST 1V Indication: Shortness of breath. Covid positive. Comparison: 09/22/2020 Findings: Extensive bilateral airspace opacities. No pleural effusion or pneumothorax. Asymmetric elevation of the right hemidiaphragm. The cardiomediastinal silhouette is within normal limits for size. Impression: Relatively diffuse bilateral airspace opacities most likely on account of an atypical/viral pneumonia given history. Electronically signed by: JUAN J RILEY MD (05/20/2021 10:43 PM) [facility] DICTATED AND SIGNED BY: JUAN J RILEY MD DATE: 05/20/212241 CC: ROSA HAMMER MD; IAN MUNIZ; PCP,UNKNOWN ~MTH0 0 (ROSA HAMMER MD) Heart Score: C/O Chest Pain: No (IAN MUNIZ) Course & Med Decision Making: Course & Med Decision Making Pertinent Labs and Imaging studies reviewed. (See chart for details) Due to patient's new oxygen requirement, patient will be admitted to hospitalist service for acute respiratory failure with hypoxia due to COVID-19 pneumonia. Work-up today will include chest x-ray, EKG, lab work to evaluate extent of infection and any electrolyte abnormalities. Patient arrived on 6L NC with reported O2 saturation of 92%. On room air in the department, patient's saturation dropped to 85%. Patient was then placed on 6 L nasal cannula and was saturating in the low to mid 90s. Patient was then placed on nonrebreather at 15 L with saturation 99-100%. Patient admitted to Dr. Peterson service. Patient states that he does not want to be on mechanical ventilation or intubated, should he need it. He does still request cardiac resuscitation in the event that it is warranted. Discussed with the patient that it is difficult to exclude one without the other, however he insists on no intubation or mechanical ventilation. (IAN MUNIZ) Dragon Disclaimer: Dragon Disclaimer: This electronic medical record was generated, in whole or in part, using a voice recognition dictation system. (IAN MUNIZ) Departure Departure: Impression: Primary Impression: Acute hypoxemic respiratory failure due to COVID-19 Disposition: ADMITTED INPATIENT Admitting Physician: Xander Peterson (IAN MUNIZ) Condition: GUARDED Referrals: PCP,UNKNOWN (PCP) Attending Signature Attending Signature I have participated in the care of this patient and I have reviewed and agree with all pertinent clinical information above including history, exam, and recommendations. (ROSA HAMMER MD) IAN MUNIZ May 20, 2021 20:53 ROSA HAMMER MD May 21, 2021 05:33
[2021-05-20] MEDS ORDERED: IV NORMAL SALINE 1,000ML 1,000 ML IV ONE (21:00)
[2021-05-20 21:20] LABS: BASO % 0 % (0-3); EOS % 0 % (0-3); HEMATOCRIT 39.9 % (39.0-53.0); HEMOGLOBIN 14.1 g/dL (13.0-17.5); LYMPH # 0.2 x10^3/uL (1.0-4.8); LYMPH % 2 % (24-48); MEAN CORPUSCULAR HEMOGLOBIN 31 pg (25-35); MEAN CORPUSCULAR HGB CONC 35 g/dL (31-37); MEAN CORPUSCULAR VOLUME 88 fL (79-100); MONO # 0.3 x10^3/uL (0.0-1.1); MONO % 3 % (0-9); NEUT # 10.1 x10^3uL (1.8-7.7); NEUT % 95 % (31-73); PLATELET COUNT 204 x10^3/uL (140-400); RED BLOOD COUNT 4.53 x10^6/uL (4.30-5.70); RED CELL DISTRIBUTION WIDTH 12.7 % (11.5-14.5); WHITE BLOOD COUNT 10.7 x10^3/uL (4.0-11.0)
[2021-05-20 21:30] LABS: CALCIUM 7.8 mg/dL (8.5-10.1); CREATININE 1.2 mg/dL (0.7-1.3); GFR 63.6; POTASSIUM 3.3 mmol/L (3.5-5.1)
[2021-05-20 21:35] LABS: ALBUMIN/GLOBULIN RATIO 0.8 (1.0-1.7); TOTAL BILIRUBIN 0.8 mg/dL (0.2-1.0); TOTAL PROTEIN 6.7 g/dL (6.4-8.2)
[2021-05-20] MEDS ORDERED: ACETAMINOPHEN 325 MG TABLET PO PRN (22:00)
--- NOTE | 2021-05-20 22:45 | RAD ---
Study: XR CHEST 1V Indication: Shortness of breath. Covid positive. Comparison: 09/22/2020 Findings: Extensive bilateral airspace opacities. No pleural effusion or pneumothorax. Asymmetric elevation of the right hemidiaphragm. The cardiomediastinal silhouette is within normal limits for size. Impression: Relatively diffuse bilateral airspace opacities most likely on account of an atypical/viral pneumonia given history. Electronically signed by: JUAN J RILEY MD (05/20/2021 10:43 PM) [facility]
[2021-05-20] MEDS ORDERED: methylPREDNISolone SOD SUCC PF 125 MG/2 ML VIAL. IV ONE (23:30)
[2021-05-21] VITALS (15 sets, daily range): BP systolic 108–130; BP diastolic 66–76
--- NOTE | 2021-05-21 00:45 | NUR ---
Pt admitted to ICU bed 1 from ER via [facility] [place], accompanied by EMS and nursing staff. Pt ambulated from rney to bed with stand by assist, steady gait noted. Admission assessment completed. Pt tested + for Covid on Wednesday05/18/21 after feeling sick for about a week prior. Pt saw PCP and was started on Z-pack and Prednisone without improvement in symptoms. Pt has c/o SOA, cough, fever and Hypoxia on room air at home. Pt placed on Tele, NSR to S.tach noted on monitor. Pt requiring 13L of O2 to keep O2 sats >90%, pt prefers wearing NRB mask over HFNC. Health history and home medications reviewed with pt. Pt lives at home with . CM and RT consulted. Pt refused flu vaccine and has NOT been vaccinated for Covid. POC reviewed with pt, understanding verbalized. Pt was given written information regarding hospital policies, unit procedures and contact persons. Valuables were checked and left at bedside. Pt given snack per request, poor appetite. Pt is very adamant about NOT receiving Remdesivir or being intubated. Dr Peterson called for admit orders.
[2021-05-21] MEDS ORDERED: AZITHROMYCIN 500 MG in IV NORMAL SALINE 250ML 250 ML IV ONE (02:00)
[2021-05-21] MEDS ORDERED: Quercetin PO (03:41)
[2021-05-21] MEDS ORDERED: VITA400T6 PO (03:41)
[2021-05-21] MEDS ORDERED: ZINC50TA39 PO (03:41)
[2021-05-21] MEDS: IPRATRPIUM/ALBUTEROL 0.5/2.5MG 3 ML NEBU. NEB SCH ×3 (06:00→13:08)
--- NOTE | 2021-05-21 06:21 | EKG ---
[address] [address] Test Date: 2021-05-20 Test Time: 20:35:09 Pat Name: LEOBARDO SMITH Department: Room: [facility] 1 Gender: M Show Operations Supervisor: ROSA : 1970 Requested By: IAN MUNIZ Order Number: [id number] Reading MD: Jossue Hampton Measurements Intervals Warner Rate: 87 P: 36 [place]: 162 QRS: 50 QRSD: 94 T: 26 QT: 348 QTc: 419 Interpretive Statements SINUS RHYTHM NORMAL ECG Electronically Signed On 05-22-2021 12:42:52 DIRECTOR OF BUSINESS CONTINUITY by Jossue Hampton
[2021-05-21] MEDS: BUDESONIDE 0.5 MG/2 ML NEBU NEB SCH ×2 (06:35→19:10)
[2021-05-21] MEDS ORDERED: ALBUTEROL SULFATE 8GM INHALER. INH PRN (08:15)
[2021-05-21] MEDS ORDERED: ALBUTEROL SULFATE 8GM INHALER. INH ONE (08:15)
[2021-05-21] MEDS: guaiFENesin/CODEINE 100mg/10mg 5 ML LIQUID PO PRN ×2 (08:19→19:56)
[2021-05-21] MEDS ORDERED: CHOLECALCIFEROL (VITAMIN D3) 50,000 UNIT CAPSULE PO SCH (09:00)
[2021-05-21] MEDS: ZINC SULFATE 220 MG CAPSULE. PO SCH (09:51)
[2021-05-21] MEDS: DEXAMETHASONE SOD PHOS 10 MG/ML VIAL. IV SCH (09:51)
[2021-05-21] MEDS: LACTOBACILLUS RHAMNOSUS GG 1 CAPSULE. PO SCH ×2 (09:51→19:56)
[2021-05-21] MEDS: ASCORBIC ACID 1,000 MG TABLET PO SCH (09:52)
[2021-05-21] MEDS: ENOXAPARIN 40 MG/0.4 ML SYRINGE. SQ SCH (09:52)
[2021-05-21] MEDS ORDERED: LIDOCAINE 2% JELLY 6ML IN APPLICATOR. MM ONE (11:30)
--- NOTE | 2021-05-21 11:31 | HP ---
DATE OF SERVICE: 05/21/2021 ADMIT DATE: 05/20/2021 ATTENDING PHYSICIAN: Dr. Hayes. CHIEF COMPLAINT: Shortness of breath. HISTORY OF PRESENT ILLNESS: The patient is a 50-year-old gentleman seen at the [facility]. He is otherwise healthy. He has had a diagnosis of COVID-19 nine days ago. He became more short of breath, presented to the ED, he had required oxygen at 6 liters to maintain 92% saturation. X-rays showed significant bilateral nonspecific infiltrate consistent with viral pneumonia. He is admitted then with COVID-19 pneumonia as well as acute respiratory failure with hypoxemia. PAST MEDICAL HISTORY: Significant for tonsillectomy. He has had an anterior cruciate ligament repair 6 years ago. There is no history of hypertension, diabetes or heart disease. ALLERGIES: He has no known drug allergies. CURRENT MEDICATIONS: Scheduled none. He was on [id number] various multivitamins and coenzyme Q10. FAMILY HISTORY: Noncontributory. Both parents alive and healthy, respective age of 78 and 83. mom and dad. He is . He has 2 teenage boys. REVIEW OF SYSTEMS: All other systems reviewed and turned to be negative. He has not had his vaccines. PHYSICAL EXAMINATION: GENERAL: When I saw him, this is a pleasant young middle-aged gentleman. VITAL SIGNS: Initial vital signs showed a blood pressure 117/70, pulse is 71 and regular. He is afebrile. Oxygen saturation initially, he required 15 liters by nonrebreather mask. Just in a short time when I saw him, we had cut his oxygen requirement down to 10 liters to maintain a saturation of 93%. HEENT: Head is without trauma. Pupils are reactive. Sclerae nonicteric. Oropharynx is clear. NECK: Supple, no bruits. LUNGS: Coarse rhonchi bilaterally. CARDIOVASCULAR: Showed distant heart tones. No gallops. ABDOMEN: Soft. EXTREMITIES: Without edema. NEUROLOGIC: No focal deficits. SKIN: Warm and dry. PERTINENT LABORATORY STUDIES: His hemoglobin is 14.1 g/dL with a white count of 10,700. Sodium was 125 mEq, potassium 3.3 mEq, nonfasting blood sugar 147. Transaminases are normal. ASSESSMENT: 1. A 50-year-old gentleman with acute hypoxemic respiratory failure. 2. Asymptomatic hyponatremia. 3. Nonproductive cough is noted. PLAN: 1. Admit to the inpatient unit. 2. Supplemental oxygen ordered. 3. Empiric Lovenox. 4. Decadron. 5. Gentle IV hydration. 6. Serial chemistries. LILIA DR: Khari TID: [id number]
[2021-05-21] MEDS: POTASSIUM CL 40MEQ IN 0.9%NACL 1,000 ML IV SCH ×2 (11:47→23:03)
[2021-05-21] MEDS: ONDANSETRON PF 4 MG/2 ML VIAL. IVP PRN (15:58)
--- NOTE | 2021-05-21 18:26 | NUR ---
PATIENT HAS BEEN MAINTAINING OXYGEN SATURATIONS >90% ON 13L NRB THROUGHOUT MAJORITY OF SHIFT. PATIENT DOES DESAT WITH EXERTION BUT HAS BEEN ABLE TO RECOVER BUT A HA WAS PLACED TO HELP PATIENT RESERVE HIS ENERGY AND STRENGTH AT THIS TIME. PATIENT IS ALERT AND ORIENTED CURRENTLY IN BED WITH SIDE RAILS UP x'S 2 WITH CALL LIGHT IN REACH.
[2021-05-21] MEDS ORDERED: MORPHINE SULFATE 2 MG/ML DISP.SYRIN. IV PRN (18:45)
[2021-05-21] MEDS: FAMOTIDINE 20 MG TABLET PO SCH (19:56)
[2021-05-22] VITALS (14 sets, daily range): BP systolic 100–137; BP diastolic 58–80
[2021-05-22] MEDS: ONDANSETRON PF 4 MG/2 ML VIAL. IVP PRN ×2 (01:46→09:29)
[2021-05-22] MEDS: guaiFENesin/CODEINE 100mg/10mg 5 ML LIQUID PO PRN ×3 (01:46→20:42)
[2021-05-22] MEDS: FAMOTIDINE 20 MG TABLET PO SCH ×2 (09:27→20:40)
[2021-05-22] MEDS: BUDESONIDE 0.5 MG/2 ML NEBU NEB SCH ×2 (09:27→20:40)
[2021-05-22] MEDS: AZITHROMYCIN 250 MG TABLET. PO SCH (09:27)
[2021-05-22] MEDS: ZINC SULFATE 220 MG CAPSULE. PO SCH (09:27)
[2021-05-22] MEDS: LACTOBACILLUS RHAMNOSUS GG 1 CAPSULE. PO SCH ×2 (09:27→20:40)
[2021-05-22] MEDS: ASCORBIC ACID 1,000 MG TABLET PO SCH (09:28)
[2021-05-22] MEDS: ENOXAPARIN 40 MG/0.4 ML SYRINGE. SQ SCH (09:28)
[2021-05-22] MEDS: DEXAMETHASONE SOD PHOS 10 MG/ML VIAL. IV SCH (09:28)
[2021-05-22 10:36] LABS: CALCIUM 7.8 mg/dL (8.5-10.1); GFR 78.5; POTASSIUM 4.5 mmol/L (3.5-5.1)
[2021-05-22 10:42] LABS: ALBUMIN 2.5 g/dL (3.4-5.0); ALBUMIN/GLOBULIN RATIO 0.7 (1.0-1.7); TOTAL BILIRUBIN 0.3 mg/dL (0.2-1.0)
--- NOTE | 2021-05-22 11:14 | PN ---
DATE: 05/22/2021 ATTENDING PHYSICIAN: Dr. Hayes. SUBJECTIVE: The patient is still dyspneic with minimal exertion. He is not any worse than yesterday. There is a strong anxiety component. I explained to him what our game plan is. I told him I could not tell him what day he will get better to get out of the hospital. OBJECTIVE FINDINGS: VITAL SIGNS: Blood pressure this morning is 111/71, pulse is 80 and regular. He is afebrile. Oxygen saturations are able to maintain a 96% between 10-12 liters by high-flow nasal cannula and nonrebreather mask. HEENT: Head is without trauma. Pupils are reactive. Sclerae nonicteric. Oropharynx clear. NECK: Supple, no bruits. LUNGS: Clear to auscultation with minimal rhonchi. CARDIOVASCULAR: Showed distant heart tones. No gallop. ABDOMEN: Soft. EXTREMITIES: Without edema. NEUROLOGIC: Function focally intact. LABORATORY DATA: Chemistries are pending. ASSESSMENT: 1. A 50-year-old gentleman with bilateral COVID pneumonia. 2. Acute respiratory failure with hypoxemia requiring high flow oxygen. 3. Mild hyponatremia, being corrected. PLAN: 1. Continue Decadron as ordered. 2. Lovenox. 3. Supplemental oxygen to be weaned down. 4. Reassurance to the patient. 5. He wants to leave the Sepulveda catheter in another day. 6. Follow up serial chemistries. NATHALIA DR: ETHEL/karen TID: [id number]
[2021-05-22] MEDS: BENZONATATE 100 MG CAPSULE. PO SCH ×2 (13:00→20:40)
[2021-05-22] MEDS: POTASSIUM CL 40MEQ IN 0.9%NACL 1,000 ML IV SCH (14:10)
[2021-05-22] MEDS ORDERED: SODIUM CHLORIDE 0.65% NASAL SPRAY 45ML BOTTLE. NS PRN (17:00)
[2021-05-22] MEDS: MELATONIN 3 MG TABLET PO PRN (20:40)
[2021-05-23] VITALS (24 sets, daily range): BP systolic 96–134; BP diastolic 50–85
[2021-05-23] MEDS: ONDANSETRON PF 4 MG/2 ML VIAL. IVP PRN (01:50)
[2021-05-23] MEDS: guaiFENesin/CODEINE 100mg/10mg 5 ML LIQUID PO PRN (01:50)
[2021-05-23 06:23] LABS: BASO % 0 % (0-3); EOS % 0 % (0-3); HEMATOCRIT 39.3 % (39.0-53.0); HEMOGLOBIN 13.4 g/dL (13.0-17.5); LYMPH # 0.3 x10^3/uL (1.0-4.8); LYMPH % 3 % (24-48); MEAN CORPUSCULAR HEMOGLOBIN 31 pg (25-35); MEAN CORPUSCULAR HGB CONC 34 g/dL (31-37); MEAN CORPUSCULAR VOLUME 90 fL (79-100); MONO # 0.6 x10^3/uL (0.0-1.1); MONO % 5 % (0-9); NEUT # 10.8 x10^3uL (1.8-7.7); NEUT % 92 % (31-73); PLATELET COUNT 309 x10^3/uL (140-400); RED BLOOD COUNT 4.35 x10^6/uL (4.30-5.70); RED CELL DISTRIBUTION WIDTH 13.1 % (11.5-14.5); WHITE BLOOD COUNT 11.7 x10^3/uL (4.0-11.0)
[2021-05-23 06:37] LABS: ALBUMIN 2.4 g/dL (3.4-5.0); ALBUMIN/GLOBULIN RATIO 0.7 (1.0-1.7); CALCIUM 7.6 mg/dL (8.5-10.1); GFR 78.5; POTASSIUM 4.3 mmol/L (3.5-5.1); TOTAL BILIRUBIN 0.5 mg/dL (0.2-1.0); TOTAL PROTEIN 5.7 g/dL (6.4-8.2)
[2021-05-23] MEDS: ZINC SULFATE 220 MG CAPSULE. PO SCH (08:11)
[2021-05-23] MEDS: FAMOTIDINE 20 MG TABLET PO SCH ×2 (08:11→19:52)
[2021-05-23] MEDS: BENZONATATE 100 MG CAPSULE. PO SCH ×3 (08:11→19:52)
[2021-05-23] MEDS: LACTOBACILLUS RHAMNOSUS GG 1 CAPSULE. PO SCH ×2 (08:11→19:52)
[2021-05-23] MEDS: BUDESONIDE 0.5 MG/2 ML NEBU NEB SCH ×2 (08:12→22:18)
[2021-05-23] MEDS: ENOXAPARIN 40 MG/0.4 ML SYRINGE. SQ SCH (08:12)
[2021-05-23] MEDS: AZITHROMYCIN 250 MG TABLET. PO SCH (08:12)
[2021-05-23] MEDS: DEXAMETHASONE SOD PHOS 10 MG/ML VIAL. IV SCH (08:12)
[2021-05-23] MEDS: ASCORBIC ACID 1,000 MG TABLET PO SCH (08:13)
--- NOTE | 2021-05-23 09:10 | RAD ---
EXAM: XR CHEST 1V 05/23/2021 8:03 AM CLINICAL INDICATION: Covid COMPARISON: Chest radiograph 05/20/2021 TECHNIQUE: AP view of the chest FINDINGS: The cardiac silhouette is normal. The right hemidiaphragm remains elevated. Extensive patc hy bilateral confluent airspace opacities are unchanged. No pleural effusion or pneumothorax. IMPRESSION: Unchanged bilateral airspace opacities. Electronically signed by: Brenda Ward MD (05/23/2021 9:08 AM) [id number]
--- NOTE | 2021-05-23 18:30 | NUR ---
Pt encouraged to self prone. O2 weaned to 6L HFNC. Sepulveda discontinued. Pt voided 1100 mL since removal. Discussed activity goals. Pt less anxious, encouraged by decreased oxygen requirements. VSS.
--- NOTE | 2021-05-23 20:33 | PN ---
DATE: 05/23/2021 ATTENDING PHYSICIAN: Dr. Hayes. SUBJECTIVE: The patient is self-proning. He is doing better. His oxygen saturations are improving. OBJECTIVE FINDINGS: GENERAL: A followup chest x-ray today shows bilateral infiltrates. Clinically, it is lagging the clinical response. VITAL SIGNS: Blood pressure this morning is 110/66 mmHg, pulse is 85 and regular. He is afebrile. Oxygen saturations are maintained between 6-10 liters by nasal cannula. HEENT: Head is without trauma. Pupils are reactive. Sclerae nonicteric. Oropharynx is clear. NECK: Supple. No bruits or stridor. LUNGS: Rhonchi persists bilaterally, but he is moving air well. CARDIOVASCULAR: Showed regular heart tones. No gallops. ABDOMEN: Soft. EXTREMITIES: Without edema. NEUROLOGIC: Focally intact. ASSESSMENT: 1. A 50-year-old gentleman with bilateral COVID pneumonia. 2. Acute respiratory failure, hypoxemia. 3. Mild hyperglycemia. PLAN: 1. We will continue Decadron. 2. Lovenox. 3. We are in the process of weaning down his oxygen requirement. 4. Remove Sepulveda catheter. TRACEY DR: ETHEL/karen TID: [id number]
[2021-05-24] VITALS (12 sets, daily range): BP systolic 99–131; BP diastolic 57–83
--- NOTE | 2021-05-24 06:37 | NUR ---
Pt slept intermittently through the night. Pts oxygen saturations improve when patient is asleep and resting calmly. Pt gets very anxious and restless at times when awake and as a result he gets more short of breath, RR rate increases and o2 sats drop. Encouraged pt to do some relaxation techniques, slow his breathing and it seems to help him relax and his oxygenation improves. O2 @ 7L HFNC, sats low 90's%. Assessment otherwise unchanged this AM.
[2021-05-24] MEDS: BUDESONIDE 0.5 MG/2 ML NEBU NEB SCH ×2 (07:51→19:27)
[2021-05-24] MEDS: ENOXAPARIN 40 MG/0.4 ML SYRINGE. SQ SCH (07:51)
[2021-05-24] MEDS: ZINC SULFATE 220 MG CAPSULE. PO SCH (07:51)
[2021-05-24] MEDS: BENZONATATE 100 MG CAPSULE. PO SCH ×3 (07:52→19:26)
[2021-05-24] MEDS: LACTOBACILLUS RHAMNOSUS GG 1 CAPSULE. PO SCH ×2 (07:52→19:26)
[2021-05-24] MEDS: AZITHROMYCIN 250 MG TABLET. PO SCH (07:52)
[2021-05-24] MEDS: DEXAMETHASONE SOD PHOS 10 MG/ML VIAL. IV SCH (07:52)
[2021-05-24] MEDS: FAMOTIDINE 20 MG TABLET PO SCH ×2 (07:52→19:26)
[2021-05-24] MEDS: ASCORBIC ACID 1,000 MG TABLET PO SCH (08:05)
--- NOTE | 2021-05-24 10:29 | PN ---
DATE: 05/24/2021 ATTENDING PHYSICIAN: Dr. Hayes. SUBJECTIVE: The patient is comfortable. He has no new complaints. OBJECTIVE FINDINGS: VITAL SIGNS: Blood pressure this morning is 126/81, his pulse is 80 and regular. He is afebrile. Oxygen saturation, he is maintaining 90% down to 6 liters by nasal cannula. HEENT: Head is without trauma. Pupils are reactive. Sclerae nonicteric. Oropharynx clear. NECK: Supple, no bruits. LUNGS: Good breath sounds with good air movement. Minimal rhonchi at the bases. CARDIOVASCULAR: Showed regular heart tones. ABDOMEN: Soft. EXTREMITIES: Without edema. NEUROLOGIC: Focally intact. SKIN: Warm and dry. LABORATORY DATA: When I did review his chest x-ray from yesterday. Clearly, if still abnormal, but I do believe the chest x-ray findings are lagging the clinical response. He is better clinically. ASSESSMENT: 1. A 50-year-old gentleman with bilateral COVID pneumonia. 2. Acute hypoxemic respiratory failure, improving as his oxygen demands are declining. 3. Hyperglycemia, mild. 4. Mild dehydration. 5. Generalized weakness, but improving. PLAN: 1. Continue Decadron. 2. Continue Lovenox. 3. We will continue weaning down his oxygen requirement. 4. Sepulveda catheter removed without any symptoms. 5. If we can maintain his saturations on 3 liters by nasal cannula, he can be discharged home with supplemental oxygen. PAULO DR: Khari TID: [id number]
[2021-05-24] MEDS ORDERED: BENZOCAINE/MENTHOL LOZNGE 18'S BOX. PO PRN (18:15)
[2021-05-25 08:27] VITALS: BP 111/72
[2021-05-25] MEDS: BUDESONIDE 0.5 MG/2 ML NEBU NEB SCH ×2 (08:52→20:11)
[2021-05-25] MEDS: ENOXAPARIN 40 MG/0.4 ML SYRINGE. SQ SCH (09:00)
[2021-05-25] MEDS: BENZONATATE 100 MG CAPSULE. PO SCH ×3 (09:31→20:11)
[2021-05-25] MEDS: FAMOTIDINE 20 MG TABLET PO SCH ×2 (09:31→20:12)
[2021-05-25] MEDS: ZINC SULFATE 220 MG CAPSULE. PO SCH (09:31)
[2021-05-25] MEDS: AZITHROMYCIN 250 MG TABLET. PO SCH (09:31)
[2021-05-25] MEDS: LACTOBACILLUS RHAMNOSUS GG 1 CAPSULE. PO SCH ×2 (09:31→20:11)
[2021-05-25] MEDS: ASCORBIC ACID 1,000 MG TABLET PO SCH (09:32)
[2021-05-25] MEDS: DEXAMETHASONE SOD PHOS 10 MG/ML VIAL. IV SCH (09:33)
--- NOTE | 2021-05-25 09:50 | PN ---
DATE: 05/25/2021 ATTENDING PHYSICIAN: Dr. Hayes. SUBJECTIVE: No new complaints. He is comfortable. He is still tired and weak. He had a spontaneous epistaxis. He is on Lovenox. OBJECTIVE FINDINGS: VITAL SIGNS: Blood pressure this morning is 111/72 mmHg. He is afebrile, pulse is 90 and regular, oxygen saturation 92% on 6 liters nasal cannula. HEENT: Head is without trauma. Pupils are reactive. Sclerae nonicteric. Oropharynx clear. NECK: Supple, no bruits. LUNGS: Minimal rhonchi at the bases, but he is moving air well otherwise. CARDIOVASCULAR: Showed regular heart tones. No gallops. ABDOMEN: Soft. EXTREMITIES: Without edema. NEUROLOGIC: Focally intact. ASSESSMENT: 1. A 50-year-old gentleman with bilateral COVID pneumonia in an unvaccinated patient. 2. Acute hypoxemic respiratory failure, improving with decreased oxygen demands. 3. Hypertension, stable. 4. Mild dehydration, rehydrated. 5. Epistaxis, aggravated by Lovenox. PLAN: 1. Continue Decadron and IV antibiotics. 2. I shall discontinue the Lovenox because of his bleeding. 3. We are still in the process of weaning him down supplemental oxygen. By the time we get him down to 2 or 3 liters, he can be discharged home. PAULO DR: Khari TID: [id number]
--- NOTE | 2021-05-25 18:00 | NUR ---
pt has done fairly well throughout shift today. Dr. Hayes was here to see pt this morning, he would like for pt to be titrated down on his oxygen in preparation for dc. He would like pt to be dcd on 2 lpm. Pt has been titrated down to 4 lpm today. Pt was taken over for shower this evening by nursing staff on oxygen; he tolerated the shower well. He was able to do about half by himself.
[2021-05-25 19:30] VITALS: BP 117/78
[2021-05-25 23:06] VITALS: BP 114/77
[2021-05-26] VITALS (7 sets, daily range): BP systolic 106–122; BP diastolic 66–76
[2021-05-26] MEDS: ASCORBIC ACID 1,000 MG TABLET PO SCH (09:44)
[2021-05-26] MEDS: LACTOBACILLUS RHAMNOSUS GG 1 CAPSULE. PO SCH ×2 (09:45→20:25)
[2021-05-26] MEDS: AZITHROMYCIN 250 MG TABLET. PO SCH (09:45)
[2021-05-26] MEDS: ZINC SULFATE 220 MG CAPSULE. PO SCH (09:45)
[2021-05-26] MEDS: FAMOTIDINE 20 MG TABLET PO SCH ×2 (09:45→20:25)
[2021-05-26] MEDS: BENZONATATE 100 MG CAPSULE. PO SCH ×3 (09:45→20:25)
[2021-05-26] MEDS: BUDESONIDE 0.5 MG/2 ML NEBU NEB SCH ×2 (09:46→21:07)
[2021-05-26] MEDS: DEXAMETHASONE SOD PHOS 10 MG/ML VIAL. IV SCH (09:46)
--- NOTE | 2021-05-26 13:07 | PN ---
DATE: 05/26/2021 ATTENDING PHYSICIAN: Dr. Hayes. SUBJECTIVE: The patient is alert. He had a little rough night trying to get comfortable. He has no new complaints. OBJECTIVE FINDINGS: VITAL SIGNS: Blood pressure this morning is 122/75 mmHg. His pulse is 93 and regular. He is afebrile and oxygen saturation 92% down to 3 liters by nasal cannula. HEENT: Head is without trauma. Pupils are reactive. Sclerae nonicteric. Oropharynx clear. NECK: Supple, no bruits identified. LUNGS: Good breath sounds. Minimal rhonchi at bases. CARDIOVASCULAR: Regular heart tones. No gallops. ABDOMEN: Soft. EXTREMITIES: Without edema. NEUROLOGIC: Focally intact. ASSESSMENT: 1. A 50-year-old gentleman with bilateral COVID pneumonia in an unvaccinated patient. 2. Acute hypoxemic respiratory failure, improving with decreased oxygen demands to maintain saturations. 3. Essential hypertension. 4. Mild dehydration, rehydrated. 5. Epistaxis, aggravated by Lovenox. PLAN: 1. Continue Decadron and IV antibiotics. 2. I have stopped the Lovenox because of his nosebleed. 3. We are still weaning down oxygen. If we can get him maintained and stable at 2 liters, he can be discharged tomorrow with home oxygen. ETHEL/TAB DR: ETHEL/karen TID: [id number]
[2021-05-26] MEDS: MELATONIN 3 MG TABLET PO PRN (20:25)
[2021-05-26] MEDS: guaiFENesin/CODEINE 100mg/10mg 5 ML LIQUID PO PRN (20:43)
[2021-05-27 05:00] VITALS: BP 114/70
[2021-05-27] MEDS: BUDESONIDE 0.5 MG/2 ML NEBU NEB SCH (08:00)
[2021-05-27] MEDS: ASCORBIC ACID 1,000 MG TABLET PO SCH (08:31)
[2021-05-27] MEDS: BENZONATATE 100 MG CAPSULE. PO SCH (08:31)
[2021-05-27] MEDS: ZINC SULFATE 220 MG CAPSULE. PO SCH (08:31)
[2021-05-27] MEDS: AZITHROMYCIN 250 MG TABLET. PO SCH (08:31)
[2021-05-27] MEDS: LACTOBACILLUS RHAMNOSUS GG 1 CAPSULE. PO SCH (08:31)
[2021-05-27] MEDS: FAMOTIDINE 20 MG TABLET PO SCH (08:31)
[2021-05-27] MEDS: DEXAMETHASONE SOD PHOS 10 MG/ML VIAL. IV SCH (08:32)
--- NOTE | 2021-05-27 12:50 | NUR ---
PT DISCHARGED HOME WITH OXYGEN. PT AND GIVEN HOME INSTRUCTIONS FOR OXYGEN USE AND HAVE OXYGEN COMPANY'S NUMBER. PT WHEELED TO CAR BY STAFF AND PICKED UP BY . PT HAS WRITTEN PRESCRIPTIONS AND DISCHARGE INSTRUCTIONS. HEART MONITOR AND IV DC'D.
--- NOTE | 2021-05-27 18:49 | DS ---
DATE OF DISCHARGE: 05/27/2021 ATTENDING PHYSICIAN: Dr. Hayes FINAL DISCHARGE DIAGNOSES: 1. Bilateral COVID-19 pneumonia in an unvaccinated patient. 2. Acute hypoxemic respiratory failure requiring high levels of oxygen, improved. 3. Essential hypertension. 4. Mild dehydration, rehydrated. 5. Single episode of epistaxis, aggravated by Lovenox. HISTORY AND PHYSICAL: The patient is a healthy 50-year-old gentleman. Unfortunately, he has not had his vaccines. He presented with cough, congestion, shortness of breath and chest x-ray evidence of bilateral infiltrates, nonspecific airspace disease consistent with viral pneumonia. He tested positive for COVID-19. PHYSICAL EXAMINATION: Please see the dictated note. PERTINENT LABORATORY AND X-RAY STUDIES: Admission hemoglobin was 14.1 g/dL with a white count of 10,700. Electrolytes on admission, sodium 125, repeated was up to 137; potassium replaced to 4.5 mEq; nonfasting blood sugar 117. Transaminases were normal. COURSE IN THE HOSPITAL: The patient was admitted. He was started on empiric antibiotics, Decadron and IV hydration. He improved. He required at one time 15 liters, but gradually improved and was able to wean down to 3 liters by nasal cannula, with an oxygen saturation of 94%. I suggested 2 liters by nasal cannula at time of discharge. On the eighth hospital day, he was improved. I wrote scripts for Decadron 8 mg p.o. daily for 5 more days and stop, cephalexin 500 mg p.o. t.i.d. for 5 more days and Zithromax 500 mg p.o. daily for 5 more days. He will find a primary care physician through his 's work. I suggest a followup visit in 10 days to recheck x-ray. The patient was then discharged from our hospital in stable condition with explicit drug and followup care. Home health was asked to bring supplemental oxygen at 2 liters by nasal cannula for a short time before he improves to adequate saturation on room air. Total discharge time spent 39 minutes. ETHEL/CLAUDIA/NICOLE DR: Khari TID: [id number]
== END 2021-05-27 12:51 | disposition home or self-care (01) | DRG 177 ==
LOC: ER 20:22 → UNDOADMOB 22:53 → 1 SOUTH 22:53 → INTOOBSV 22:53 → 1 SOUTH 23:09 → ICU 23:09 → 1 SOUTH 05-26 15:47
PROVIDERS: ADMIT Internal Medicine; ATTEND Internal Medicine
PROC: 5A0935A Assistance with Respiratory Ventilation, Less than 24 Consecutive Hours, High Flow/Velocity Cannula (ICD-10-PCS; 2021-05-23)
PROC: 5A0935A Assistance with Respiratory Ventilation, Less than 24 Consecutive Hours, High Flow/Velocity Cannula (ICD-10-PCS; 2021-05-24)
PROC: 5A0935A Assistance with Respiratory Ventilation, Less than 24 Consecutive Hours, High Flow/Velocity Cannula (ICD-10-PCS; 2021-05-25)
PROC: 5A0935A Assistance with Respiratory Ventilation, Less than 24 Consecutive Hours, High Flow/Velocity Cannula (ICD-10-PCS; principal; 2021-05-26)
DX: U07.1 COVID-19 (principal); J12.82 Pneumonia due to coronavirus disease 2019; J96.01 Acute respiratory failure with hypoxia; E87.1 Hypo-osmolality and hyponatremia; E86.0 Dehydration; F41.9 Anxiety disorder, unspecified; I10 Essential (primary) hypertension; R04.0 Epistaxis; Z79.01 Long term (current) use of anticoagulants; Z28.3 Underimmunization status
CPT/HCPCS: 36415; 71045; 80053; 83605; 85025; 87040; 93005; 94640; 96361; 96374; J0456; J0696; J1100; J1650; J2060; J2270; J2405; J2930; J7050; 99285-25; J7030